=== PATIENT | female | born 1990 | race Caucasian/White ===

== ENCOUNTER 2017-04-14 17:03 | Emergency (ER) | payer MEDICAID ==
--- NOTE | ~2017-04-14 | CR230 ---
[facility] A Service of [facility] & [facility] RADIOLOGY TEXT RESULTS PATIENT: MARIA DEL CARMEN SEAY LOCATION: [facility] : [birth year] UNIT #: [id number] AGE: [address]: Armin Marcelo MD SEX: F ORDER DR: [id number] [facility] [address] [place], [place] [address] [id number] E MR#: [id number] Acc #: [id number] NAME: MARIA DEL CARMEN SEAY : 1990 SEX: F STUDY DATE/TIME: 04/14/2017 19:14 UNIT: [facility] ROOM: STUDY DESCRIPTION: CR Shoulder Min 2 View Rt Attending Physician: Armin Marcelo M.D. Ordering Physician: Armin Marcelo M.D. Primary Care Physician: No Primary Care Physician MEDICAL IMAGING REPORT This report is preliminary unless electronic signature is present Right shoulder, 3 views. HISTORY Shoulder pain after a fall today. FINDINGS AP view with internal and external rotation of the shoulder girdle shows satisfactory relationship of the humeral head and glenoid fossa. The joint space is normal. There is no identifiable fracture or dislocation or bony destructive process about the shoulder girdle anatomy. The acromioclavicular joint is normal. There is no radiopaque foreign body in the region. IMPRESSION Normal right shoulder, 3 views. Dictated by... Tha Hicks M.D. THIS IS AN ELECTRONICALLY VERIFIED REPORT Tha Hicks M.D. at 04/14/2017 10:50 PM GEORGE/deven TD: 04/14/2017 21:23 JOB #: [id number] MEDICAL IMAGING REPORT Page 1 of 1 COPY
--- NOTE | ~2017-04-14 | CT71 ---
[facility] A Service of [facility] RADIOLOGY TEXT RESULTS PATIENT: MARIA DEL CARMEN SEAY LOCATION: [facility] : [birth year] UNIT #: [id number] AGE: [address]: Armin Marcelo MD SEX: F ORDER DR: [id number] [place] [address] [facility] [place], [place] [address] [id number] E MR#: [id number] Acc #: [id number] NAME: MARIA DEL CARMEN SEAY : 1990 SEX: F STUDY DATE/TIME: 04/14/2017 19:20 UNIT: [facility] ROOM: STUDY DESCRIPTION: CT Head Wo Contrast Attending Physician: Armin Marcelo M.D. Ordering Physician: Armin Marcelo M.D. Primary Care Physician: No Primary Care Physician MEDICAL IMAGING REPORT This report is preliminary unless electronic signature is present Head CT, no contrast, 04/14/2017. INDICATION 26-year-old female who fell down the steps, right forehead injury, pain to the right forehead. No loss of consciousness. ; Noncontrast CT brain was performed. We have no comparisons. TECHNIQUE This CT exam was performed with one or more of the following radiation dose reduction techniques: automatic exposure control, adjustment of mA and/or kV according to patient size, and iterative reconstruction. FINDINGS CT BRAIN Sulci and ventricles unremarkable. No midline shift. No evidence of acute intracranial hemorrhage. There is no mass, mass effect or edema to suggest acute infarct and no extraaxial fluid collections are present. Globes intact. Bones intact. Sinuses clear. IMPRESSION 1. Negative noncontrast CT of the brain. Dictated by... Lai Arellano M.D. THIS IS AN ELECTRONICALLY VERIFIED REPORT Lai Arellano M.D. at 04/14/2017 11:10 PM Victor Manuel TD: 04/14/2017 21:00 JOB #: [id number] [facility] A Service of [facility] RADIOLOGY TEXT RESULTS PATIENT: MARIA DEL CARMEN SEAY LOCATION: [facility] #: [id number] : [birth year] UNIT #: [id number] AGE: [address]: Armin Marcelo MD SEX: F ORDER DR: MEDICAL IMAGING REPORT Page 1 of 1 COPY
--- NOTE | ~2017-04-14 | CR58 ---
[facility] A Service of [facility] & [facility] RADIOLOGY TEXT RESULTS PATIENT: MARIA DEL CARMEN SEAY LOCATION: [facility] : [birth year] UNIT #: [id number] AGE: [address]: Armin Marcelo MD SEX: F ORDER DR: [id number] [facility] [address] [place], [place] [address] [id number] E MR#: [id number] Acc #: [id number] NAME: MARIA DEL CARMEN SEAY : 1990 SEX: F STUDY DATE/TIME: 04/14/2017 19:06 UNIT: [facility] ROOM: STUDY DESCRIPTION: CR Cervical Spine 2 or 3 Views Attending Physician: Armin Marcelo M.D. Ordering Physician: Armin Marcelo M.D. Primary Care Physician: No Primary Care Physician MEDICAL IMAGING REPORT This report is preliminary unless electronic signature is present Cervical series, 04/14/2017. INDICATIONS Fell down the steps today, shoulder pain, C-spine pain; lateral open-mouth odontoid and frontal views performed. No comparisons. FINDINGS Dens and lateral masses intact. No acute fracture or malalignment. Mild cervical straightening. Anterior soft tissues unremarkable. No significant degenerative change. There is probable mild positional rightward curvature of the upper cervical spine on the frontal projection. Incidental tiny cervical ribs. IMPRESSION 1. Cervical straightening, but no acute fracture or malalignment. Probable mild positional dextroscoliosis. Dictated by... Lai Arellano M.D. THIS IS AN ELECTRONICALLY VERIFIED REPORT Lai Arellano M.D. at 04/14/2017 11:12 PM Victor Manuel TD: 04/14/2017 22:01 JOB #: [id number] MEDICAL IMAGING REPORT Page 1 of 1 COPY
== END 2017-04-14 21:20 | disposition home or self-care (01) ==
LOC: CFTX 17:03 → CED 17:03 → CFTX 18:51
DX: S01.111A Laceration without foreign body of right eyelid and periocular area, initial encounter (principal); S46.911A Strain of unspecified muscle, fascia and tendon at shoulder and upper arm level, right arm, initial encounter; S40.011A Contusion of right shoulder, initial encounter; F17.210 Nicotine dependence, cigarettes, uncomplicated; W01.0XXA Fall on same level from slipping, tripping and stumbling without subsequent striking against object, initial encounter; Y92.009 Unspecified place in unspecified non-institutional (private) residence as the place of occurrence of the external cause
CPT/HCPCS: 70450; 72040; 73030; 84703; 99284